=== PATIENT | female | born 1985 | race Caucasian/White ===

== ENCOUNTER 2016-05-20 13:48 | Emergency (ER) | payer MEDICAID ==
[2016-05-20 14:37] VITALS: BMI 30.4
[2016-05-20] MEDS ORDERED: Dextrose 5%/0.9% NS 1,000 ML IV ONE (14:37)
[2016-05-20 15:04] LABS: BASO % 0.2 % (0.0-2.0); EOS % 0.5 % (0.0-4.0); HEMATOCRIT 31.6 % (34.0-47.0); LYMPH # 1.3 K/uL (1.0-4.3); LYMPH % 15.6 % (20.0-40.0); MEAN CELL VOLUME 88.1 fL (81.0-99.0); MEAN CORPUSCULAR HEMOGLOBIN 28.9 pg (27.0-31.0); MEAN CORPUSCULAR HGB CONC 32.8 g/dL (33.0-37.0); MEAN PLATELET VOLUME 7.5 fL (7.2-11.7); MONO # 0.6 K/uL (0.0-0.8); MONO % 6.5 % (0.0-10.0); RED CELL DISTRIBUTION WIDTH 14.4 % (11.5-14.5); WHITE BLOOD COUNT 8.6 K/uL (4.8-10.8)
[2016-05-20 15:05] LABS: RBC URINE 1 /hpf (0-3); URINE BILIRUBIN NEGATIVE (NEGATIVE); URINE BLOOD NEGATIVE (NEGATIVE); URINE COLOR Yellow (YELLOW); URINE GLUCOSE (UA) NORMAL (Normal); URINE KETONE 2+ mg/dL (NEGATIVE); URINE LEUKOCYTE ESTERASE 2+ Leu/uL (Negative); URINE PROTEIN NEGATIVE (NEGATIVE); URINE UROBILINOGEN NORMAL mg/dL (0.2-1.0)
[2016-05-20 15:07] LABS: CHLORIDE 97 mmol/L (98-107); POTASSIUM 3.2 mmol/L (3.6-5.2); SODIUM 133 mmol/L (132-148)
[2016-05-20 15:08] LABS: WBC URINE 20 /hpf (0-5)
[2016-05-20 15:09] LABS: GFR AFRICAN-AMERICAN > 60
[2016-05-20 15:10] LABS: ALKALINE PHOSPHATASE 123 U/L (38-126); ALT/SGPT 22 U/L (9-52); AST/SGOT 19 U/L (14-36); BILIRUBIN,TOTAL 0.4 mg/dL (0.2-1.3); BLOOD UREA NITROGEN 6 mg/dL (7-17); CARBON DIOXIDE 20 mmol/L (22-30); GLUCOSE,RANDOM 68 mg/dL (65-105); TOTAL PROTEIN 6.8 g/dL (6.3-8.3)
[2016-05-20] MEDS ORDERED: Potassium Chloride 20 mEq ER Tab PO SCH (16:15)
--- NOTE | 2016-05-20 17:22 | OBHP ---
Datetime: 05/20/2016 15:00 IP Adm Impression: , intrauterine ; No Active Labor IP Chief Complaint Other: Nausea/vomiting x 24 h; inability to keep food down IP Admit Plan: Discharge home Admit Comment, IP Provider: 30 yo , LMP 09/25/15, SUSIE 07/01/16, EGA 34w 1d confirmed by sono at14w 4d referred from clinic for evaluation/management of nausea and vomiting. Patient r eports onset of vomiting and diarrhea in the morning of 05/19/16, all day and into the night. Went to clinic; referred here. (+) vomiting with everything eaten, every time; and loose BM soon the reafter. Denies sick contact or recent travel; no one else at home with these symptoms. Patient is th e only who ate fish purchased from a local store on evening. (+) AFM; denies LOF, VB, Ctx; ( +) mid-epigastric and generalized lower abdominal pain. care: [facility]; last visit 05/17/16; nex t one shceduled 06/02/16. Denies issues to date P Ob: x 2: 2009, 4 - 5 Kg; 2011, 3 Kg; both males; born delivered in [place]. 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 Denies STIs PMH: denies PSH: denies NKDA Meds: PNV - QD Soc Hx: denies tobacco, illicit drug or EtOH use. x 7 years. Unemployed. Fam Hx: Mother alive 52 - no med issues. Father alive 54 - DM. P.E.: as above. WD in NAD. awake, alert, oriented to time, person and place. Pleasant and cooperat jarred. Assessment: 30 yo P2, 34w 1d, acute gastroenteritis. Category 1 tracing. Clinically stable. Plan: 1) CBC, comp metabaloc panel with lipase 2) IVFs: D5 NS x 1 litre 3) Zofran 4 mg IVP x 1 4) Trial of liquids 5) Observe. Addendum: 1410 hours Labs noted for potassium = 3.0. LFTs and lipase wnl. U/A also noted for ketonuria and leuk esteras e 2+ Plan: 1) trial of liquids 2) Potassium 40 mEq p.o. x 1 3) Observe Addendum: 1715 hours - Patient has had crackers, water and observed >30 minutes: no vomiting. Also, no BM since in Ob-E D. Assessment: 30 y.o. P2, 34w 1d acute gastroenteritis, responding to anti-emetic and IV hydration. Patient given p.o. potassium in light of hypokalemia; encouraged to ingest 1 banana a day. Also, to o bserve dry and bland food for the next 3-4 days; and to monitor food ingestion from outside sources. Plan: 1) discharge home 2) zofran 4 mg p.o. every 6 hours, as needed (10 tabs) 3) reviewed S/S PTL 4) Keep next appointment. Pelvic Type - PN: Not Done Extremities - PN: Normal Abdomen - PN: Abnormal Back - PN: Normal Breast - PN: Not Done Lungs - PN: Normal Heart - PN: Normal Thyroid - PN: Not Done Neurologic - PN: Normal HEENT - PN: Normal General - PN: Normal Presentation-Admit: Vertex FHR - Baseline A Provider: 135 Comments, ACOG Physical Exam: Skin: warm, dry, intact. Lips are moist HEENT: full ROM Lungs: CTA bilaterally Cardiac: RRR, normal S1, S2 Abdomen: Gravid. Soft. Minimal epigastric to LUQ tenderness. No RUQ tenderness or Heller's sign. F undal height 35 cm. : dry; no masses or discharge Extremities: no calf tenderness, cyanosis or edema All other systems reviewed - as per HPI Gestation - Est Wks by US: 34w 1d IP Hx Assessment: The History has been Reviewed and is Current EGA AdmitDate IP: 33.6 IP Chief Complaint: Other NICHD Variability Prov Fetus A: Moderate 6-25bpm NICHD Accel Fetus A IP Provider: 15X15 FHR Category Provider Fetus A: Category I NICHD Decel Fetus A IP Provider: None Genitourinary Exam: Normal DTRs - PN: Not Done
== END 2016-05-20 17:24 | disposition home or self-care (01) ==
LOC: C.EROB 13:48
DX: O26.893 Other specified pregnancy related conditions, third trimester (principal); K52.9 Noninfective gastroenteritis and colitis, unspecified; Z3A.34 34 weeks gestation of pregnancy
CPT/HCPCS: 80053; 81001; 83690; 85025; 96374; 99283; J2405; J7042

== ENCOUNTER 2016-06-15 13:55 | Emergency (ER) | payer MEDICAID ==
--- NOTE | 2016-06-15 15:16 | OBHP ---
Datetime: 06/15/2016 15:13 IP Adm Impression: Term, intrauterine ; No Active Labor; Intact Membranes IP Admit Plan: Discharge home Admit Comment, IP Provider: Reactive NST Pelvic Type - PN: Adequate Extremities - PN: Normal Abdomen - PN: Normal Back - PN: Normal Breast - PN: Not Done Lungs - PN: Normal Heart - PN: Normal Thyroid - PN: Not Done Neurologic - PN: Not Done HEENT - PN: Not Done General - PN: Normal Weight - Estimated: 3000 Presentation-Admit: Vertex FHR - Baseline A Provider: 130 Gestation - Est Wks by US: 37.0 EGA AdmitDate IP: 37.4 Vital Signs Provider: Reviewed; Within Normal Limits IP Chief Complaint: evaluation NICHD Variability Prov Fetus A: Moderate 6-25bpm NICHD Accel Fetus A IP Provider: 15X15 FHR Category Provider Fetus A: Category I NICHD Decel Fetus A IP Provider: None Genitourinary Exam: Normal DTRs - PN: Normal
== END 2016-06-15 15:06 | disposition home or self-care (01) ==
LOC: C.EROB 13:55
DX: Z36 Encounter for antenatal screening of mother (principal)

== ENCOUNTER 2016-07-06 18:18 | Inpatient (IN) | payer OTHER ==
[2016-07-06 19:03] VITALS: BMI 30.9
--- NOTE | 2016-07-06 19:21 | OBADHP ---
Datetime: 07/06/2016 19:10 Admit Comment, IP Provider: Chief complaint-contractions HPI 30 y/o at 40.4 wga with c/o contractions since yesterday but strong today and passing muc ous like discharge this afternoon.Patient states that she noticed leaking of fluid yesterday once b ut none since then. care: [facility]; Denies issues to date P Ob: x 2: 2009, 4 - 5 Kg; 2011, 3 Kg; both males; born delivered in [place]. 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 Denies STIs PMH: denies PSH: denies NKDA Meds: PNV - QD Soc Hx: denies tobacco, illicit drug or EtOH use. x 7 years. Unemployed. Fam Hx: Mother alive 52 - no med issues. Father alive 54 - DM. P.E.: see exam section cervix 3-4/70/-2 A/P 30 y/o at 40.4 wga in labor.gbs negative -admit -see orders Pelvic Type - PN: Adequate Extremities - PN: Normal Abdomen - PN: Normal Back - PN: Normal Lungs - PN: Normal Heart - PN: Normal Neurologic - PN: Normal General - PN: Normal Weight - Estimated: 3400 Presentation-Admit: Vertex Membranes, Provider: Intact Contraction Comments Provider: irregular Gestation - Est Wks by US: 40.4 Pool Provider: Negative Nitrazine Provider: Negative Ferning Provider: Negative IP Hx Assessment: The History has been Reviewed and is Current Vital Signs Provider: Reviewed; Within Normal Limits IP Chief Complaint: Uterine contractions FHR Category Provider Fetus A: Category I Dilatation, Provider: 3-4 Effacement, Provider: 70 Station, Provider: -2 Genitourinary Exam: Normal DTRs - PN: Normal EGA AdmitDate IP: 40.4 IP Adm Impression: Postterm, intrauterine ; Active labor IP Admit Plan: Admit to unit; Initiate labor protocol Datetime: 06/15/2016 15:13 Breast - PN: Not Done Thyroid - PN: Not Done HEENT - PN: Not Done FHR - Baseline A Provider: 130 NICHD Variability Prov Fetus A: Moderate 6-25bpm NICHD Accel Fetus A IP Provider: 15X15 NICHD Decel Fetus A IP Provider: None Datetime: 05/20/2016 15:00 IP Chief Complaint Other: Nausea/vomiting x 24 h; inability to keep food down Comments, ACOG Physical Exam: Skin: warm, dry, intact. Lips are moist HEENT: full ROM Lungs: CTA bilaterally Cardiac: RRR, normal S1, S2 Abdomen: Gravid. Soft. Minimal epigastric to LUQ tenderness. No RUQ tenderness or Heller's sign. F undal height 35 cm. : dry; no masses or discharge Extremities: no calf tenderness, cyanosis or edema All other systems reviewed - as per HPI
--- NOTE | 2016-07-06 19:22 | OBHP ---
Datetime: 07/06/2016 19:10 IP Adm Impression: Postterm, intrauterine ; Active labor IP Admit Plan: Admit to unit; Initiate labor protocol Admit Comment, IP Provider: Chief complaint-contractions HPI 30 y/o at 40.4 wga with c/o contractions since yesterday but strong today and passing muc ous like discharge this afternoon.Patient states that she noticed leaking of fluid yesterday once b ut none since then. care: [facility]; Denies issues to date P Ob: x 2: 2009, 4 - 5 Kg; 2011, 3 Kg; both males; born delivered in [place]. 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 Denies STIs PMH: denies PSH: denies NKDA Meds: PNV - QD Soc Hx: denies tobacco, illicit drug or EtOH use. x 7 years. Unemployed. Fam Hx: Mother alive 52 - no med issues. Father alive 54 - DM. P.E.: see exam section cervix -/-2 A/P 30 y/o at 40.4 wga in labor.gbs negative -admit -see orders Pelvic Type - PN: Adequate Extremities - PN: Normal Abdomen - PN: Normal Back - PN: Normal Lungs - PN: Normal Heart - PN: Normal Neurologic - PN: Normal General - PN: Normal Weight - Estimated: 3400 Presentation-Admit: Vertex Membranes, Provider: Intact Contraction Comments Provider: irregular Gestation - Est Wks by US: 40.4 Pool Provider: Negative Nitrazine Provider: Negative Ferning Provider: Negative IP Hx Assessment: The History has been Reviewed and is Current EGA AdmitDate IP: 40.4 Vital Signs Provider: Reviewed; Within Normal Limits IP Chief Complaint: Uterine contractions FHR Category Provider Fetus A: Category I Dilatation, Provider: 3-4 Effacement, Provider: 70 Station, Provider: -2 Genitourinary Exam: Normal DTRs - PN: Normal
[2016-07-06 19:58] LABS: BASO % 0.2 % (0.0-2.0); EOS % 0.5 % (0.0-4.0); HEMATOCRIT 33.8 % (34.0-47.0); LYMPH # 1.6 K/uL (1.0-4.3); LYMPH % 20.3 % (20.0-40.0); MEAN CELL VOLUME 87.4 fL (81.0-99.0); MEAN CORPUSCULAR HEMOGLOBIN 29.6 pg (27.0-31.0); MEAN CORPUSCULAR HGB CONC 33.8 g/dL (33.0-37.0); MEAN PLATELET VOLUME 8.9 fL (7.2-11.7); MONO # 0.7 K/uL (0.0-0.8); MONO % 8.9 % (0.0-10.0); RED CELL DISTRIBUTION WIDTH 16.4 % (11.5-14.5)
[2016-07-06 20:03] LABS: CHLORIDE 100 mmol/L (98-107); RBC URINE 6 /hpf (0-3); SODIUM 131 mmol/L (132-148); URINE BACTERIA RARE (<OCC); URINE BILIRUBIN NEGATIVE (NEGATIVE); URINE BLOOD 1+ (NEGATIVE); URINE COLOR Yellow (YELLOW); URINE GLUCOSE (UA) NORMAL (Normal); URINE KETONE NEGATIVE (NEGATIVE); URINE LEUKOCYTE ESTERASE 2+ Leu/uL (Negative); URINE PROTEIN NEGATIVE (NEGATIVE); URINE UROBILINOGEN NORMAL mg/dL (0.2-1.0); WBC URINE 27 /hpf (0-5)
[2016-07-06 20:04] LABS: POTASSIUM 3.6 mmol/L (3.6-5.2)
[2016-07-06 20:06] LABS: ALB/GLOB RATIO 1.1 (1.0-2.1); ALKALINE PHOSPHATASE 150 U/L (38-126); AST/SGOT 23 U/L (14-36); BILIRUBIN,TOTAL 0.5 mg/dL (0.2-1.3); BLOOD UREA NITROGEN 7 mg/dL (7-17); CARBON DIOXIDE 22 mmol/L (22-30); GFR AFRICAN-AMERICAN > 60; GLUCOSE,RANDOM 92 mg/dL (65-105); TOTAL PROTEIN 6.7 g/dL (6.3-8.3)
[2016-07-06 20:07] LABS: ALT/SGPT 19 U/L (9-52); CALCIUM 8.8 mg/dl (8.6-10.4)
[2016-07-06] MEDS ORDERED: Lactated Ringer's 1,000 ML IV SCH (21:15)
[2016-07-06] MEDS ORDERED: Nalbuphine 20 mg/ml Inj (1 ml) ONE (23:25)
[2016-07-06] MEDS ORDERED: Nalbuphine 20 mg/ml Inj (1 ml) IVP PRN (23:30)
[2016-07-07] MEDS ORDERED: Oxytocin 30 UNIT 30 UNITS/500 ML BAG IV PRN (04:41)
[2016-07-07] MEDS ORDERED: Bupivacaine 0.125%/FentaNYL 200 ML EPI ONE (07:22)
[2016-07-07] MEDS ORDERED: Bupivacaine HCl 0.25% PF (10 ml) Inj ONE (07:42)
[2016-07-07] MEDS ORDERED: Lidocaine 2% Inj (20ml) ONE (11:47)
[2016-07-07] MEDS ORDERED: Benzocaine/Menthol 20%-0.5% Topical Spray (60 ml) TOP PRN (14:50)
[2016-07-07] MEDS: Oxycodone/Acetaminophen 5/325 mg Tab PO PRN (15:03)
--- NOTE | 2016-07-07 21:58 | OBDS ---
DELIVERY PERSONNEL Delivery Doctor: Ronald Godfrey MD Billing Collections Specialist: Karla Mendez RN Anesthesiologist: luis MATERNAL INFORMATION Delivery Anesthesia: Epidural Medications in Delivery: pitocin 20 Estimated Blood Loss (ml): 500 Placenta Cultured: No Maternal Complications: None Provider Comments: Uncomplicated vaginal delivery of live male nfant, direct OP to LAMONTE position. kirk ght 8lb 14 oz. over intact perieneum. On perineum 's mouth and nose bulb suctioned as umbilical cord (very very long) was cut. Spontaneous deliveyr of placenta - grossly intact; 3 vessel cord. Uterine exploration performed - moderate bleeding with passage of significantclots. Uterus boggy; decision made to administer hemabate 250 micrograms IM x 1. With continued bimanual massage, uterus c ontracted and firm. Pitocin infusing. Examination of cervix, vagina and perineum - laceration as above; repaired as above. Patient and bonding - both in stable condition. LABOR SUMMARY EDC: 07/02/2016 00:00 No. Babies in Womb: 1 Attempted: No Labor Anesthesia: Epidural LABOR INFORMATION Reason for Induction: Not Applicable Onset of Labor: 07/06/2016 09:00 Oxytocin: Augmentation Group B Beta Strep: Negative Steroids Given: None Reason Steroids Not Administered: Not Applicable MEMBRANES Membranes Rupture Method: Spontaneous Rupture of Membranes: 07/07/2016 10:07 Length of Rupture (hrs): 1.35 Amniotic Fluid Color: Clear Amniotic Fluid Amount: Moderate Amniotic Fluid Odor: Normal STAGES OF LABOR Stage 3 hrs: 0 Stage 3 min: 12 Total Time in Labor hrs: 26 Total Time in Labor min: 40 VAGINAL DELIVERY Episiotomy: Median Laceration Extension: Second Degree Laceration Type: None Laceration Repair: Yes Laceration Repair Note: 2-0 chromic in routine fashion for repair, under local anesthesia with 2% li docaine Patient tolerated procedure well Hemostasis assured Initial Vag Sponge Count: 10 Final Vag Sponge Count: 10 Initial Vag Sharps Count: 1 Final Vag Sharps Count: 1 Sponge Count Correct: Yes Count Comment: Correct BABY A INFORMATION Delivery Date/Time: 07/07/2016 11:28 Method of Delivery: Vaginal Born in Route : No : N/A Forceps: N/A Vacuum Extraction: N/A Shoulder Dystocia : No SHOULDER DYSTOCIA BABY A Delivery Date/Time: 07/07/2016 11:28 PRESENTATION/POSITION BABY A Presentation: Cephalic Cephalic Presentation: Vertex Vertex Position: Left Occipital Anterior Breech Presentation: N/A PLACENTA INFORMATION BABY A Placenta Delivery Time : 07/07/2016 11:40 Placenta Method of Delivery: Spontaneous Placenta Status: Delivered SCORES BABY A Heart Rate 1 min: >100 bpm Resp Effort 1 min: Good Cry Reflex Irritability 1 min: Cough or Sneeze or Pulls Away Muscle Tone 1 min: Active Motion Color 1 min: Body [place], Extremities Blue Resuscitation Effort 1 min: Tactile Stimulation SCORE 1 MIN: 9 Heart Rate 5 min: >100 bpm Resp Effort 5 min: Good Cry Reflex Irritability 5 min: Cough or Sneeze or Pulls Away Muscle Tone 5 min: Active Motion Color 5 min: Body [place], Extremities Blue SCORE 5 MIN: 9 INFORMATION BABY A Gestational Age at Delivery: 40.5 Gestational Status: Term Outcome : Liveborn Condition : Stable Infant Sex: Male IDENTIFICATION/MEDS BABY A ID Band Number: [id number] ID Band Location: Left Leg; Left Arm Sensor Applied: Yes Sensor Number: [id number] Sensor Location : Cord Clamp WEIGHT/LENGTH BABY A Birthweight (gms): 4040 Weight (lb): 8 Infant Weight (oz): 14 Infant Length Inches: 21.00 Infant Length cms: 53.3 CORD INFORMATION BABY A No. Cord Vessels: 3 Nuchal Cord : N/A Cord Blood Taken: Yes Infant Suction: Mouth; Nose ASSESSMENT BABY A Complications: None Physical Findings at Delivery: Within Normal Limits Respirations: Appears Normal Client Operations Manager/ALS Called : No Infant Care By: dr mack Transferred To: Nursery
[2016-07-08] MEDS: Oxycodone/Acetaminophen 5/325 mg Tab PO PRN (08:51)
[2016-07-08 08:58] LABS: HEMATOCRIT 33.4 % (34.0-47.0); MEAN CELL VOLUME 87.8 fL (81.0-99.0); MEAN CORPUSCULAR HEMOGLOBIN 29.4 pg (27.0-31.0); MEAN CORPUSCULAR HGB CONC 33.5 g/dL (33.0-37.0); RED CELL DISTRIBUTION WIDTH 16.9 % (11.5-14.5)
[2016-07-08] MEDS: Multiple Vitamins Tab PO SCH (09:18)
--- NOTE | 2016-07-08 09:37 | OBPPN ---
Datetime: 07/08/2016 09:33 PP Pain Prov: Within normal limits PP Nausea Prov: Denies PP Flatus Prov: Yes PP Breasts Prov: Normal PP Heart Prov: Normal PP Lungs Prov: Normal PP Abdomen/Uterus Prov: Normal PP Lochia Prov: Normal PP Vulva/Perineum Prov: Normal PP CVA Tenderness Prov: Normal PP Extremities Prov: Normal PP Comments Phys Exam Prov: Abd: Soft, NT, BS- present UT; Firm PP Impression Prov: Normal progression PP Plan Prov: Continue present management PP Progress Note Prov: S/P , Clinically Stable. Plan: Continue care. Vital Signs Provider PP: Reviewed
[2016-07-09 08:58] VITALS: BP 94/58; PULSE 73; RESP 18; TEMP 98.3; O2SAT 98
--- NOTE | 2016-07-09 09:06 | OBPPN ---
Datetime: 07/09/2016 09:03 PP Pain Prov: Within normal limits PP Nausea Prov: Denies PP Flatus Prov: Yes PP Breasts Prov: Normal PP Heart Prov: Normal PP Lungs Prov: Normal PP Abdomen/Uterus Prov: Normal PP Lochia Prov: Normal PP Vulva/Perineum Prov: Normal PP CVA Tenderness Prov: Normal PP Extremities Prov: Normal PP C/S Incision Prov: Normal PP Progress Prov: Normal PP Comments Phys Exam Prov: Abd: Soft, NT, BS- present UT: Firm PP Impression Prov: Normal progression PP Progress Note Prov: S/P , Clinically Stable Plan: D/C Home. Vital Signs Provider PP: Reviewed
--- NOTE | 2016-07-09 09:08 | OBDCSUM ---
Datetime: 07/09/2016 09:05 Discharged to, Provider: Home Follow up at, Provider[facility] Disch Instr Activity: Normal activity Disch Instr Diet: Regular Discharge Instructions, Provider: Routine instructions given Discharge Diagnosis, Provider: Term Delivered Discharge Time: 07/09/2016 09:06 Follow up in weeks, Provider: 6 weeks Disch Referrals: None Contraception discussed, Prov: Yes Disch Activity Restrictions: Nothing in vagina - [place], tampons, douche Discharge Comment, Provider: S/P uncomplicated , Clinically Stable Discharge Diagnosis Prov Other: S/P uncomplicated , Clinically Stable
[2016-07-09] MEDS: Multiple Vitamins Tab PO SCH (10:22)
== END 2016-07-09 12:30 | disposition home or self-care (01) | DRG 373 ==
LOC: C.EROB 18:18 → C.4D 19:03 → C.4M 07-07 14:01
PROVIDERS: ADMIT Student in an Organized Health Care Education/Training Program; ATTEND Student in an Organized Health Care Education/Training Program
PROC: 10E0XZZ Delivery of Products of Conception, External Approach (ICD-10-PCS; principal; 2016-07-07)
PROC: 0W8NXZZ Division of Female Perineum, External Approach (ICD-10-PCS; 2016-07-07)
PROC: 0KQM0ZZ Repair Perineum Muscle, Open Approach (ICD-10-PCS; 2016-07-07)
DX: O48.0 Post-term pregnancy (principal); O70.1 Second degree perineal laceration during delivery; Z3A.40 40 weeks gestation of pregnancy; Z37.0 Single live birth

== ENCOUNTER 2017-08-06 10:28 | Day surgery (SDC) | payer OTHER ==
[2017-07-31 10:02] VITALS: BMI 24.7
[2017-08-06 12:01] VITALS: O2SAT 100
[2017-08-06] MEDS ORDERED: cefOXitin IV 1 gm in Dextrose 0 GM/0 ML BAG IVPB ONE (13:22)
[2017-08-06] MEDS ORDERED: Midazolam 2 MG/2 ML VIAL ONE ×2 (13:31→13:46)
[2017-08-06] MEDS ORDERED: Propofol 10 mg/ml Inj (20 ML) ONE ×2 (13:31→13:47)
[2017-08-06] MEDS ORDERED: cefOXitin IV 1 gm in Dextrose 2 GM/100 ML BAG IVPB ONE (14:03)
[2017-08-06] MEDS ORDERED: Lactated Ringer's 1,000 ML IV SCH (15:15)
[2017-08-06] MEDS ORDERED: HYDROmorphone 0.5 mg/0.5 ml ISec IVP PRN (15:15)
--- NOTE | 2017-08-06 15:18 | PCM.SURG1 ---
Surgeon's Initial Post Op Note - Surgeon's Notes Surgeon: Dr. Almaraz Knitted Cloth Examiner: Dr. York Type of Anesthesia: General Endo Anesthesia Administered By: Dr. Disla Pre-Operative Diagnosis: 31 yo for Hysteroscpy, Laparoscpic IUD Removal Operative Findings: 31 yo with Chronic pelvic, IUD removal which was located in the abdomen towrads the right side embredded my the ovaries . Post-Operative Diagnosis: 31 yo with IUD embredded by the ovarian ligment/ posterior broad ligament , Endometriosis , multiple adhesions Operation Performed: Hysteroscopy Laparoscopy, IUD removal Specimen/Specimens Removed: IUD Estimated Blood Loss: EBL {In ML}: 10 Blood Products Given: N/A Drains Used: No Drains Post-Op Condition: Good Date of Surgery/Procedure: 08/06/17 Time of Surgery/Procedure: 15:19
[2017-08-06] MEDS ORDERED: Lactated Ringer's 1,000 ML IV ONE (16:40)
[2017-08-06 17:39] VITALS: BP 101/70; PULSE 80; RESP 18; TEMP 97
[2017-08-06] MEDS ORDERED: Clindamycin 2% Vaginal Cream(40 gm) ONE (17:45)
[2017-08-06 18:56] LABS: MEAN CELL VOLUME 87.9 fL (81.0-99.0); MEAN CORPUSCULAR HEMOGLOBIN 29.6 pg (27.0-31.0); MEAN CORPUSCULAR HGB CONC 33.6 g/dL (33.0-37.0); MEAN PLATELET VOLUME 7.6 fL (7.2-11.7); RBC 4.07 Mil/uL (3.80-5.20); RED CELL DISTRIBUTION WIDTH 13.1 % (11.5-14.5); WHITE BLOOD COUNT 14.3 K/uL (4.8-10.8)
--- NOTE | 2017-09-04 00:05 | OP ---
PROCEDURE DATE: 08/06/2017 PREOPERATIVE DIAGNOSES: This is a 32-year-old female with embedded intrauterine device, for hysteroscopy and laparoscopic intrauterine device removal as well as chronic pelvic pain. POSTOPERATIVE DIAGNOSES: This is a 32-year-old female with intrauterine device embedded by the right ovarian ligament and the side of the posterior broad ligament, evidence of endometriosis, multiple adhesions. PROCEDURE: Hysteroscopy, laparoscopy, intrauterine device removal. SURGEON: Tawana Almaraz MD LIGHTHOUSE KEEPER: Dr. York TYPE OF ANESTHESIA: General LMA. ANESTHESIOLOGIST: Dr. Disla. DESCRIPTION OF PROCEDURE: The patient was informed of the risks factors, benefits, and alternatives of the procedure. Risk factors included infection, bleeding, damage to the surrounding organs and tissue, as well as possible hysterectomy, blood transfusion, and . Risk factors were explained but not limited to. All questions were answered and informed consent was obtained. Once the informed consent was obtained, she was then taken to the operating room, prepped and draped in normal sterile fashion, placed in dorsal lithotomy position. A weighted speculum was placed into the vagina. The anterior lip of the cervix was grasped with a single-toothed tenaculum. The uterus was gently sounded to approximately 7 cm. Upon complete uterine dilation, the scope was then utilized into make a survey of the cavity, and it was noted that the IUD was not inside the uterine cavity. At that particular instance, a HUMI was then placed in order to manipulate the uterus. Attention was then turned to the umbilical fold where a small incision, a 5 mm skin incision, was made in the umbilical fold. The optic trocar was utilized and placed under direct visualization. The pneumoperitoneum was obtained with 4 L of CO2 gas. Two additional 5-mm trocars and sleeve were then advanced without any difficulty into the abdomen. In that particular instance, survey of the patient's pelvis demonstrated that she had multiple adhesions as well as evidence of endometriosis. The IUD was identified. It was on the right side embedded by the ovary close to the posterior broad ligament. Under direct visualization, the IUD was then grasped and removed, and from that area, excellent hemostasis was noted. It was submitted to pathology. Again, excellent hemostasis was noted, no active bleeding. The pelvis was then irrigated. There was no bleeding from the mesosalpinx. The skin was closed with 3-0 Monocryl, and all instrument and lap count were correct x2. The patient was then taken to the recovery room in stable condition and instructed to follow up in 2 weeks. Tawana Almaraz MD
== END 2017-08-06 19:35 | disposition home or self-care (01) ==
LOC: C.SDS 10:28
PROVIDERS: ATTEND Obstetrics & Gynecology
DX: T83.32XA Displacement of intrauterine contraceptive device, initial encounter (principal)
CPT/HCPCS: 36415; 58562; 82948; 85027; 88300; J0694; J1885; J2250; J2405; J2704; J2765; J3010; J7120